=== PATIENT | female | born 1975 | race Caucasian/White ===

== ENCOUNTER 2016-11-04 14:55 | Emergency (ER) | payer OTHER ==
[2016-11-04 15:24] VITALS: BMI 38.9
--- NOTE | 2016-11-04 16:48 | PDOC ---
History of Present Illness <Manolo Cain - Last Filed: 11/04/16 18:43> - General History Source: Patient, Old Records Exam Limitations: No Limitations - History of Present Illness Initial Comments: 11/04/16 17:17 The patient is a 41 year old female, with a significant past medical history of hyperlipidemia, diabetes, proteinuria and DVT (2013; discontinued Lovenox in June 2016), who presents to the emergency department with worsening left lower extremity swelling and pain over the past couple of days. The patient states that she visited her PCPs office earlier today because she had been experiencing intermittent left lower extremity swelling and pain when ambulating over the past couple of days. The patient additionally reports that the left leg is larger compared to the right. Earlier today, the patient had an ultrasound done, which revealed a DVT in the left mid superficial femoral vein. The patients PCP was notified and sent the patient to the ED for further evaluation. The patient denies any extremity weakness/tingling/numbness. The patient denies injury or trauma. Allergies: None reported. Past Surgical History: None reported. Social History: Non smoker. Denies alcohol or drug use. PCP: ABHAY Matos <Vanesa Townsend - Last Filed: 11/04/16 19:42> - General Chief Complaint: Pain, Acute Stated Complaint: DVT IN LEFT LEG Time Seen by Provider: 11/04/16 16:48 Past History - Past Medical History DVT: Yes Diabetes: Yes Disorders: Yes (protineuria) Hypercholesterolemia: Yes - Psycho/Social/Smoking Cessation Hx Anxiety: No Suicidal Ideation: No Smoking History: Never smoked Have you smoked in the past 12 months: No Hx Alcohol Use: No Drug/Substance Use Hx: No Substance Use Type: None Hx Substance Use Treatment: No <Manolo Cain - Last Filed: 11/04/16 18:43> <Vanesa Townsend - Last Filed: 11/04/16 19:42> - Past Medical History Allergies/Adverse Reactions: Allergies Allergy/AdvReac Type Severity Reaction Status Date / Time No Known Allergies Allergy Verified 11/04/16 15:25 Home Medications: Ambulatory Orders Fluticasone Prop 0.05% Nasal [Flonase -] 1 spray NS BID #1 spray.pump 10/18/14 Insulin Aspart [Novolog] 0 units NR ASDIR 07/16/15 Insulin Lispro [Humalog] 0 unit SQ ASDIR 07/16/15 Ibuprofen [Motrin -] 800 mg PO TID #30 tablet 07/29/15 Rivaroxaban [Xarelto -] 20 mg PO DAILY #30 tablet 11/04/16 Review of Systems - Review of Systems Able to Perform ROS?: Yes Comments:: 11/04/16 17:07 CONSTITUTIONAL: No fever, no chills, no fatigue EYES: No visual changes ENT: No ear pain, no sore throat CARDIOVASCULAR: No chest pain, no palpitations RESPIRATORY: No cough, no SOB GI: No abdominal pain, no nausea, no vomiting, no constipation, no diarrhea GENITOURINARY: No dysuria, no frequency, no hematuria MUSCULOSKELETAL: +Left lower extremity swelling and pain. No back pain, no joint pain, no myalgias SKIN: No rash NEURO: No headache <Vanesa Townsend - Last Filed: 11/04/16 19:42> *Physical Exam - Vital Signs Last Vital Signs Temp Pulse Resp BP Pulse Ox 98.0 F 78 18 126/70 98 11/04/16 15:22 11/04/16 15:22 11/04/16 15:22 11/04/16 15:22 11/04/16 15:22 <Manolo Cain - Last Filed: 11/04/16 18:43> - Vital Signs Last Vital Signs Temp Pulse Resp BP Pulse Ox 98.0 F 78 18 126/70 98 11/04/16 15:22 11/04/16 15:22 11/04/16 15:22 11/04/16 15:22 11/04/16 15:22 - Physical Exam Comments: 11/04/16 17:43 CONSTITUTIONAL: Well-appearing; well-nourished; in no apparent distress. HEAD: Normocephalic; atraumatic. EYES: PERRL; EOM intact. ENMT: External appears normal; normal oropharynx. NECK: Supple; non-tender; no cervical lymphadenopathy. CARD: Normal S1, S2; no murmurs, rubs, or gallops. RESP: Normal chest excursion with respiration; breath sounds clear and equal bilaterally; no wheezes, rhonchi, or rales. ABD: Soft, non-distended; non-tender; no palpable organomegaly, no palpable hernias. EXT: LLE is approximately 20% larger than the RLE, no edema, no tenderness. Normal ROM in all four extremities; non-tender to palpation; distal pulses intact. SKIN: Warm, dry, no rash. NEURO: No focal neurological deficiencies. <Vanesa Townsend - Last Filed: 11/04/16 19:42> Medical Decision Making - Medical Decision Making 11/04/16 18:45 Patient is a 41-year-old female with history of DVT who discontinued Lovenox in June 2016 on the instructions of her BOARD OPERATOR 2 months post who presents with atraumatic left lower extremity swelling. Patient underwent an outpatient Doppler ultrasound of the left lower extremity which revealed a DVT within the left superficial vein. Patient denies chest pain or shortness of breath in the ER. Vital signs are normal and stable. I discussed the case with patient's PMD. At this time, patient can be discharged with is a relative by mouth with outpatient follow-up for hypercoagulability workup. Patient had received a dose of Lovenox in the ED prior to discharge. <Manolo Cain - Last Filed: 11/04/16 18:43> - Medical Decision Making 11/04/16 17:17 Call placed to BASKET ASSEMBLER Mariluz Regimen at at 16:55, awaiting callback. BASKET ASSEMBLER Mariluz Regimen returned call at 17:10, case discussed. <Vanesa Townsend - Last Filed: 11/04/16 19:42> *DC/Admit/Observation/Transfer - Attestations Physician Attestion: 11/04/16 18:45 The documentation was prepared by the scribe under my direct supervision. I have reviewed the documentation which correctly represents the findings, medical decision-making and critical action taken by me. <Manolo Cain - Last Filed: 11/04/16 18:43> - Attestations Scribe Attestion: 11/04/16 16:56 Documentation prepared by Vanesa Townsend, acting as medical receptionist medical assistant for Manolo Cain MD. <Vanesa Townsend - Last Filed: 11/04/16 19:42> Diagnosis at time of Disposition: Deep venous thrombosis Qualifiers: DVT location: lower extremity Affected thrombotic vein of extremity: unspecified vein of extremity Laterality: left Chronicity: acute Qualified Code( s): I82.402 - Acute embolism and thrombosis of unspecified deep veins of left lower extremity - Discharge Dispostion Disposition: HOME Condition at time of disposition: Stable - Prescriptions Prescriptions: Rivaroxaban [Xarelto -] 20 mg PO DAILY #30 tablet - Referrals Referrals: Leah Reynolds MD [Primary Care Provider] - - Patient Instructions Printed Discharge Instructions: DI for Deep Vein Thrombosis
[2016-11-04] MEDS ORDERED: ENOXAPARIN NA (PORCINE) 100 MG/1 ML DISP.SYRIN SQ ONE ×2 (17:07→18:00)
[2016-11-04 18:52] VITALS: BP 127/84; PULSE 80; TEMP 98.6
== END 2016-11-04 18:51 | disposition home or self-care (01) ==
LOC: JER 14:55
PROC: 3E013GC Introduction of Other Therapeutic Substance into Subcutaneous Tissue, Percutaneous Approach (ICD-10-PCS; principal; 2016-11-04)
DX: I82.402 Acute embolism and thrombosis of unspecified deep veins of left lower extremity (principal); E11.9 Type 2 diabetes mellitus without complications; Z79.4 Long term (current) use of insulin; R80.8 Other proteinuria; E78.00 Pure hypercholesterolemia, unspecified
CPT/HCPCS: 84703; 93971-TC; 96372; 99284-25

== ENCOUNTER 2018-08-05 19:27 | Emergency (ER) | payer OTHER ==
[2018-08-05 20:04] VITALS: BMI 39.5
--- NOTE | 2018-08-05 20:06 | PDOC ---
Rapid Medical Evaluation Time Seen by Provider: 08/05/18 20:02 Medical Evaluation: Allergies Allergy/AdvReac Type Severity Reaction Status Date / Time No Known Allergies Allergy Verified 11/04/16 15:25 08/05/18 20:04 pt c/o: left leg pain worsening over x 3 months, hx of DVT in 2011 Pt on brief exam: active, HR 94, + discomfort to left upper leg w/ lt foot dorsiflexion Pt ordered for: duplex pt to proceed to the ED Discharge Disposition - Diagnosis Leg pain - Referrals - Patient Instructions - Post Discharge Activity
--- NOTE | 2018-08-05 20:19 | PDOC ---
History of Present Illness <Evan Bahena - Last Filed: 08/05/18 21:50> - History of Present Illness Initial Comments: 42yo F with history of DM and DVT presenting with left leg pain. Patient states this pain has gone on for a number of weeks, but has worsened in the past two days, now rated 10.5/10 and described as sharp. Denies any injury or trauma to the area. She states this feels like when she had her previous DVT, but the pain is isolated to her thigh rather than her entire leg. Has not taken anything at home for pain. Moving her left leg brings exacerbates her pain. Her left leg is larger than her right leg at baseline since her DVT. She is unsure if the size difference has gotten worse. Patient is currently only on ASA 325 per her vascular specialist, Dr. Hernandez. Denies chest pain or shortness of breath. Endorses cold symptoms of sore throat and nasal congestion. Recently travelled to [place] by plan in April 2018. No hemoptysis, no recent surgery, no hormone use. No fevers or chills. <Marina Garcia - Last Filed: 08/06/18 02:10> - General Chief Complaint: Pain, Acute Stated Complaint: LT THIGH PAIN Time Seen by Provider: 08/05/18 20:02 Past History <Evan Bahena - Last Filed: 08/05/18 21:50> - Past Medical History DVT: Yes Diabetes: Yes Disorders: Yes (protineuria) Hypercholesterolemia: Yes - Suicide/Smoking/Psychosocial Hx Smoking History: Never smoked Have you smoked in the past 12 months: No Hx Alcohol Use: No Drug/Substance Use Hx: No Substance Use Type: None Hx Substance Use Treatment: No <Marina Garcia - Last Filed: 08/06/18 02:10> - Past Medical History Allergies/Adverse Reactions: Allergies Allergy/AdvReac Type Severity Reaction Status Date / Time No Known Allergies Allergy Verified 11/04/16 15:25 Home Medications: Ambulatory Orders Aspirin [ASA -] 325 mg PO DAILY 08/05/18 Cholecalciferol (Vitamin D3) [Vitamin D3 -] 400 unit PO DAILY 08/05/18 Metformin HCl [Glucophage] 1,000 mg PO BID 08/05/18 Sitagliptin Phosphate [Januvia] 100 mg PO DAILY 08/05/18 Enoxaparin [Lovenox -] 100 mg SQ BID #40 disp.syrin 08/06/18 Review of Systems - Review of Systems Comments:: Constitutional: no fever, no chills HEENT: +throat pain, no dysphagia Cardiovascular: no chest pain, no palpitations Respiratory: no cough, no shortness of breath Gastrointestinal: no abdominal pain, no nausea, no vomiting Genitourinary: no dysuria, no frequency Musculoskeletal: +L. leg pain, no R. leg pain Skin: no rash, no itching Neurologic: no headache, no dizziness <Marina Garcia - Last Filed: 08/06/18 02:10> *Physical Exam - Vital Signs Last Vital Signs Temp Pulse Resp BP Pulse Ox 98.4 F 95 H 20 137/86 99 08/05/18 19:58 08/05/18 19:58 08/05/18 19:58 08/05/18 19:58 08/05/18 19:58 <Evan Bahena - Last Filed: 08/05/18 21:50> - Vital Signs Last Vital Signs Temp Pulse Resp BP Pulse Ox 98.4 F 95 H 20 137/86 99 08/05/18 19:58 08/05/18 19:58 08/05/18 19:58 08/05/18 19:58 08/05/18 19:58 - Physical Exam Comments: General: Awake, alert, and fully oriented, in no acute distress Head: No signs of trauma Eyes: EOMI, sclera anicteric ENT: Moist mucus membranes Neck: Normal ROM, supple Lungs: Lungs clear, Normal breath sounds Cardio: Regular rhythm, S1 and S2 present Abdomen: Soft, nontender. No guarding, no rebound, no masses. Extremities: Tender to palpation to left posterior thigh. Normal range of motion , Distal pulses present. Left calf is larger than right calf. SKIN: Warm, Dry, normal turgor Neurologic: Cranial nerves II through XII grossly intact. Normal speech <Marina Garcia - Last Filed: 08/06/18 02:10> Moderate Sedation - Procedure Monitoring Vital Signs: Procedure Monitoring Vital Signs Temperature 98.4 F 08/05/18 19:58 Pulse Rate 95 H 08/05/18 19:58 Respiratory Rate 20 08/05/18 19:58 Blood Pressure 137/86 08/05/18 19:58 O2 Sat by Pulse Oximetry (%) 99 08/05/18 19:58 <Evan Bahenae - Last Filed: 08/05/18 21:50> - Procedure Monitoring Vital Signs: Procedure Monitoring Vital Signs Temperature 98.4 F 08/05/18 19:58 Pulse Rate 95 H 08/05/18 19:58 Respiratory Rate 20 08/05/18 19:58 Blood Pressure 137/86 08/05/18 19:58 O2 Sat by Pulse Oximetry (%) 99 08/05/18 19:58 <RadhaMarina - Last Filed: 08/06/18 02:10> ED Treatment Course - LABORATORY CBC & Chemistry Diagram: 08/05/18 22:03 08/05/18 22:03 <Marina Garcia - Last Filed: 08/06/18 02:10> Medical Decision Making - Medical Decision Making 08/05/18 21:50 Dr. Leah Reynolds was called regarding the patient at 9:50pm. [phone] <Evan Bahena - Last Filed: 08/05/18 21:50> - Medical Decision Making Patient not present in room 7 08/05/18 20:27 [place] back [place] 08/05/18 20:43 42yo F with history of DM and DVT presenting with left leg pain. -DDX includes but not limited to recurrent DVT, sciatica, MSK -US: "partially occlusive thrombus is seen within the left common femoral, femoral and popliteal veins. The posterior tibial vein appears patent." -US in October 2016 showed DVT in left mid superficial femoral vein -Given the different location, this is a recurrence of DVT Patient's first DVT in 2011 likely due to immobility as patient was wheelchair bound with a right meniscal injury. She was anticoagulated. Patient was switched to Lovenox when she was trying to get and continued lovenox six weeks into the post- period until Jun 2016. Patient found to have another DVT in October 2016 and sent home from this ED with Xarelto. Patient only on Aspirin 325 today. Discussed case with Dr. Moreau who recommends Eliquis Discussed case with Dr. Ryan who agrees with Madelaine anticoagulation and PMD follow-up. She advises the patient to stop taking aspirin while on other anticoagulation. Labs sent 08/05/18 22:13 Slightly elevated leukocytosis of 10.6 likely due to patient's URI. No anemia. Electrolytes unremarkable. Patient found to be . Decision made to anticoagulate patient with Lovenox due to current guidelines. 1mg/as=716cg per dose No pole or yolk sac viewed on bedside ultrasound which is likely because the is early on with b-hcg=48.2. She will follow-up with gospel singer regarding this. Lovenox administered. Nurse Magaña verified patient's ability to self-administer lovenox at home. Patient will follow-up with her primary care physician in 1-2 days. 08/06/18 02:01 <Marina Garcia - Last Filed: 08/06/18 02:10> *DC/Admit/Observation/Transfer <RinadreadEvan - Last Filed: 08/05/18 21:50> <Marina Garcia - Last Filed: 08/06/18 02:10> Diagnosis at time of Disposition: Leg pain Qualifiers: Laterality: left Qualified Code(s): M79.605 - Pain in left leg Deep venous thrombosis Qualifiers: DVT location: lower extremity - Discharge Dispostion Disposition: HOME Condition at time of disposition: Stable - Prescriptions Prescriptions: Enoxaparin [Lovenox -] 100 mg SQ BID #40 disp.syrin - Referrals Referrals: Leah Reynolds MD [Primary Care Provider] - Shelby Whitmore MD [Staff Physician] - - Patient Instructions Printed Discharge Instructions: DI for Deep Vein Thrombosis Additional Instructions: You came into the ED for left leg pain. We found that you have a blood clot and started you back on Lovenox shots. We also found out that you are . Lovenox prescription has been sent to your pharmacy. Administer 1 shot of 100mg twice a day. Stop taking the aspirin. Take a vitamin. You can take [id number] tylenol for your leg pain. Follow the instructions on the medication bottle. Follow-up with your primary care provider, Dr. Leah Reynolds in one to two days. Your care is not complete until you do so. Call and make an appointment. Follow up with the woodworking belt sander, Dr. Ryan, to determine if you need further testing for these blood clots. Follow-up with your obgyn doctor for this . Your hormone level today was 48.2 (beta-hcg). Return to the Emergency Department if you experience: -heavy bleeding (more than two pads per hour for two hours) -severe pain -lightheadedness -shortness of breath -high fever -any other concerning symptoms
[2018-08-05] MEDS ORDERED: ACETAMINOPHEN 1000 MG/100 ML VIAL (NON FORMULARY) IVPB ONE (21:48)
[2018-08-05] MEDS ORDERED: ACETAMINOPHEN INJECTION 100 ML IVPB ONE (22:06)
[2018-08-05 22:10] LABS: BASO % 1.2 % (0-2.0); EOS % 1.1 % (0-4.5); HEMOGLOBIN 12.8 GM/dL (10.7-15.3); LYMPH % 29.9 % (8-40); MCH 31.5 pg (25.7-33.7); MCHC 34.6 g/dl (32.0-36.0); MEAN CELL VOLUME 91.2 fl (80-96); MEAN PLT VOLUME 7.8 fl (7.5-11.1); MONO % 6.2 % (3.8-10.2); NEUT % 61.6 % (42.8-82.8); PLATELET COUNT 348 K/MM3 (134-434); RBC 4.05 M/mm3 (3.60-5.2); RDW 13.6 % (11.6-15.6); WHITE BLOOD COUNT 10.6 K/mm3 (4.0-10.0)
--- NOTE | 2018-08-05 22:11 | PDOC ---
Attending Attestation - Resident Resident Name: Marina Garcia - ED Attending Attestation I have performed the following: I have examined & evaluated the patient, The case was reviewed & discussed with the resident, I agree w/resident's findings & plan - HPI HPI: 08/05/18 22:06 42y/o F h/o LLE DVT, ? prompted on initial diagnosis in setting of L knee injury , treated with coumadin at the time then lovenox until 2015 while , complicated by recurrence in 2017, started on xarelto then with attempted thrombectomy (unsuccessful per patient) with Dr. Hernandez and placed on asa, now p/w worsening LLE pain over past 2-3 days. baseline LLE larger than R, no new swelling. had complete heme workup with Dr. Ryan at that time, reportedly normal. no cardiopulmonary complaints whatsoever. traveled to [place] in april, otherwise no recent triggers. - Physicial Exam PE: 08/05/18 22:11 afebrile, well appearing heart regular, lungs clear abd soft LLE slightly larger than right, no significant tenderness, well perfused with 2 + distal pulses, no evidence of vascular congestion, neuro intact - Medical Decision Making 08/05/18 22:13 42-year-old female with history of left lower extremity DVT maintained on aspirin presents now with recurrence of left lower extremity pain, ultrasound ordered shows partially occluding thrombus. No signs or symptoms suggestive of PE. Discussed with Dr. Hernandez and Dr. Ryan - no indication for emergent procedural intervention will check basic labs including stable and candidate for outpatient treatment with eliquis 08/05/18 22:54 Labs normal but serum positive, possible trigger for recurrence of DVT. Rule out acute abnormality, will need Lovenox instead of eliquis upon discharge.
[2018-08-05 22:21] LABS: INR 0.98 (0.83-1.09); PROTHROMBIN TIME (PATIENT) 11.6 SEC (9.7-13.0)
[2018-08-05 22:24] LABS: ACTIVATED PTT 34.5 SECONDS (25.2-36.5)
[2018-08-05 22:33] LABS: ALBUMIN 3.8 g/dl (3.4-5.0); ALK PHOS 48 U/L (45-117); ANION GAP 8 MMOL/L (8-16); BILIRUBIN,TOTAL 0.2 mg/dL (0.2-1); BLOOD UREA NITROGEN 16 mg/dL (7-18); CALCIUM 8.7 mg/dL (8.5-10.1); CHLORIDE 106 mmol/L (98-107); CO2 24 mmol/L (21-32); CREATININE 0.6 mg/dL (0.55-1.3); GLUCOSE,RANDOM 151 mg/dL (74-106); POTASSIUM 4.4 mmol/L (3.5-5.1); SGOT/AST 8 U/L (15-37); SGPT/ALT 18 U/L (13-61); SODIUM 138 mmol/L (136-145); TOT PROT 7.3 g/dl (6.4-8.2)
[2018-08-05] MEDS ORDERED: ENOXAPARIN NA (PORCINE) 100 MG/1 ML DISP.SYRIN SQ ONE ×2 (23:32→23:58)
[2018-08-06 00:51] VITALS: BP 127/68; PULSE 89; TEMP 98.6
== END 2018-08-06 00:30 | disposition home or self-care (01) ==
LOC: JER 19:27
PROC: 3E013GC Introduction of Other Therapeutic Substance into Subcutaneous Tissue, Percutaneous Approach (ICD-10-PCS; principal; 2018-08-05)
PROC: 3E033NZ Introduction of Analgesics, Hypnotics, Sedatives into Peripheral Vein, Percutaneous Approach (ICD-10-PCS; 2018-08-05)
DX: I82.412 Acute embolism and thrombosis of left femoral vein (principal); I82.432 Acute embolism and thrombosis of left popliteal vein; E11.9 Type 2 diabetes mellitus without complications; Z79.84 Long term (current) use of oral hypoglycemic drugs; Z79.82 Long term (current) use of aspirin
CPT/HCPCS: 36415; 80053; 84702; 84703; 85025; 85610; 85730; 93971-TC; 99283-25; J0131

== ENCOUNTER 2019-07-23 17:28 | Inpatient (IN) | payer OTHER ==
--- NOTE | 2019-07-23 17:59 | PDOC ---
History of Present Illness - History of Present Illness Initial Comments: The pt is a 43F w/ a history of DM and DVT (2011) who recently was taken off of Lvx PPx (s/p recent 3m ago) who presents for evaluation of 1 day of LLE swelling, redness, and pain. She reports recent travel from [place] on 07/21/19. She states she has SCDs at home that she was not using on her trip. Since she was taken off of Lvx and is currently only taking ASA 81mg daily. Denies fevers/chills, cheat pain, trouble breathing, vision changes, ARELLANO, N/V, weakness, or changes in sensation 07/23/19 18:00 <Ministerio Watkins - Last Filed: 07/23/19 18:46> <Destiney Glover - Last Filed: 07/23/19 18:53> - General Chief Complaint: Pain Stated Complaint: LEG PAIN Past History - Past Medical History COPD: No DVT: Yes Diabetes: Yes Disorders: Yes (protineuria) Hypercholesterolemia: Yes - Psycho Social/Smoking Cessation Hx Smoking History: Never smoked Have you smoked in the past 12 months: No Hx Alcohol Use: No Drug/Substance Use Hx: No Substance Use Type: None Hx Substance Use Treatment: No <Ministerio Watkins - Last Filed: 07/23/19 18:46> <Destiney Glover - Last Filed: 07/23/19 18:53> - Past Medical History Allergies/Adverse Reactions: Allergies Allergy/AdvReac Type Severity Reaction Status Date / Time No Known Allergies Allergy Verified 07/23/19 17:34 Home Medications: Ambulatory Orders Metformin HCl [Glucophage] 1,000 mg PO BID 08/05/18 Aspirin [ASA -] 81 mg PO DAILY 07/23/19 Review of Systems - Review of Systems Able to Perform ROS?: Yes Comments:: GENERAL/CONSTITUTIONAL: No fever or chills. No weakness HEAD, EYES, EARS, NOSE AND THROAT: No change in vision. No change in hearing. No sore throat CARDIOVASCULAR: No chest pain or shortness of breath RESPIRATORY: Denies cough, hemoptysis GASTROINTESTINAL: No nausea, vomiting, diarrhea or constipation GENITOURINARY: No dysuria, frequency, or change in urination MUSCULOSKELETAL: LLE swelling, redness, pain SKIN: No rash NEUROLOGIC: No headache, vertigo, loss of consciousness, or change in strength/ sensation ENDOCRINE: No increased thirst. No abnormal weight change HEMATOLOGIC/LYMPHATIC: No anemia, easy bleeding, or history of blood clots ALLERGIC/IMMUNOLOGIC: No hives or skin allergy 07/23/19 17:58 Is the patient limited Omani proficient: No <Ministerio Watkins - Last Filed: 07/23/19 18:46> *Physical Exam - Vital Signs Last Vital Signs Temp Pulse Resp BP Pulse Ox 98 F 83 18 118/76 100 07/23/19 17:30 07/23/19 17:30 07/23/19 17:30 07/23/19 17:30 07/23/19 17:30 - Physical Exam GENERAL: Awake, alert, and oriented to person/place/time, in no acute distress HEAD: No signs of trauma, normocephalic, atraumatic EYES: PERRLA, EOMI, sclera anicteric, conjunctiva clear ENT: Hearing grossly normal, nares patent, oropharynx clear without exudates. Moist mucosa LUNGS: No distress, speaks in full sentences, clear to auscultation bilaterally HEART: Regular rate and rhythm, normal S1 and S2, no murmurs appreciated, b/l DP /PT 2+ ABDOMEN: Soft, protuberant, nontender, normoactive bowel sounds. No guarding, no rebound EXTREMITIES: LLE distal swelling, TTP, and medial petechiae, moves all extremities spontaneously NEUROLOGICAL: Cranial nerves II through XII grossly intact. Normal speech, normal gait, no focal sensorimotor deficits SKIN: as noted above, otherwise warm, dry 07/23/19 17:58 <Ministerio Watkins - Last Filed: 07/23/19 18:46> - Vital Signs Last Vital Signs Temp Pulse Resp BP Pulse Ox 98 F 83 18 118/76 100 07/23/19 17:30 07/23/19 17:30 07/23/19 17:30 07/23/19 17:30 07/23/19 18:20 <Destiney Glover - Last Filed: 07/23/19 18:53> ED Treatment Course - LABORATORY CBC & Chemistry Diagram: 07/23/19 18:30 07/23/19 18:30 <Ministerio Watkins - Last Filed: 07/23/19 18:46> - LABORATORY CBC & Chemistry Diagram: 07/23/19 18:30 07/23/19 18:30 <Destiney Glover - Last Filed: 07/23/19 18:53> Medical Decision Making - Medical Decision Making The pt is a 43F w/ a history of DM and DVT (2011) who recently was taken off of Lvx PPx (s/p recent 3m ago) who presents for evaluation of 1 day of LLE swelling, redness, and pain. ED Course CMP, CBC, Coags Lower extremity duplex 07/23/19 18:23 Pt's labs and imaging pending Pt not in respiratory distress Pt signed out to Dr. Navarro 07/23/19 18:46 <Ministerio Watkins - Last Filed: 07/23/19 18:46> Discharge - Discharge Information Problems reviewed: Yes <Ministerio Watkins - Last Filed: 07/23/19 18:46> <Destiney Glover - Last Filed: 07/23/19 18:53> - Discharge Information Clinical Impression/Diagnosis: Left leg swelling, Rash - Follow up/Referral Referrals: Leah Reynolds MD [Primary Care Provider] - Shelby Whitmore MD [Staff Physician] - Kiran Hernandez MD [Staff Physician] - - Patient Discharge Instructions - Post Discharge Activity
--- NOTE | 2019-07-23 18:14 | PDOC ---
Attending Attestation - Resident Resident Name: Ministerio Watkins - ED Attending Attestation I have performed the following: I have examined & evaluated the patient, The case was reviewed & discussed with the resident, I agree w/resident's findings & plan - HPI HPI: 07/23/19 18:18 43F w/ a history of DM and DVT (2011) who recently was taken off of Lvx PPx (s/ p recent 3m ago) who presents for evaluation of 1 day of LLE swelling , redness, and pain. She reports recent travel from [place] on 07/21/19, 3 hour flight; was there x 1 week. She states she has SCDs at home that she was not using on her trip. Since she was taken off of Lvx and is currently only taking ASA 81mg daily. denies immobilization or recent surgery no chest pain, sob, dizziness, syncope. no trauma. no insect bites. 07/23/19 18:51 07/24/19 09:30 - Physicial Exam PE: 07/23/19 18:14 Agree with the resident's HPI and PE as documented in the electronic medical record. NAD, well appearing, EOMI, PERRL, nl conjunctiva, anicteric; neck supple. lungs clear, RRR, abdomen soft nontender. no rebound, guarding. Back nontender. DIZA x4, no focal neuro deficits. No peripheral edema. normal color for ethnicity , WWP. +LLE calf swelling, nonpitting. nontender. no calf tenderness. LLE lower inner and anterior navas with petechiae. 07/23/19 18:51 - Medical Decision Making 07/23/19 18:14 Vital Signs Temp Pulse Resp BP Pulse Ox 98 F 83 18 118/76 100 07/23/19 17:30 07/23/19 17:30 07/23/19 17:30 07/23/19 17:30 07/23/19 17:30 vitals wnl, reassuring. no cp or sob to suggest PE at this time. isolated LE swelling in LLE. labs/lytes, cr function, duplex, check for DVT given recent travel to [place], LLE swelling petechial rash to LLE seen, nontender. pt is on ASA, will check platelets and coags. does not appear like meningiococcemia or infectious. does not appear like vasculitis. s/o pending reeval, labs, duplex to eval for DVT and ultimate dispo. 07/24/19 09:31
[2019-07-23 18:43] LABS: BASO % 1.2 % (0-2.0); EOS % 1.7 % (0-4.5); HEMOGLOBIN 12.4 GM/dL (10.7-15.3); LYMPH % 32.3 % (8-40); MCH 31.6 pg (25.7-33.7); MCHC 33.3 g/dl (32.0-36.0); MEAN CELL VOLUME 94.8 fl (80-96); MEAN PLT VOLUME 7.9 fl (7.5-11.1); MONO % 6.7 % (3.8-10.2); NEUT % 58.1 % (42.8-82.8); PLATELET COUNT 306 K/MM3 (134-434); RBC 3.91 M/mm3 (3.60-5.2); RDW 13.3 % (11.6-15.6); WHITE BLOOD COUNT 7.6 K/mm3 (4.0-10.0)
[2019-07-23 18:55] LABS: INR 0.89 (0.83-1.09); PROTHROMBIN TIME (PATIENT) 10.5 SEC (9.7-13.0)
[2019-07-23 18:58] LABS: ACTIVATED PTT 32.9 SECONDS (25.2-36.5)
--- NOTE | 2019-07-23 19:03 | PDOC ---
*Physical Exam - Vital Signs Last Vital Signs Temp Pulse Resp BP Pulse Ox 98 F 83 18 118/76 100 07/23/19 17:30 07/23/19 17:30 07/23/19 17:30 07/23/19 17:30 07/23/19 18:20 - Physical Exam MDM: Received sign out from resident Dr. Watkins. In short, pt is a 43 y/o female presenting with left leg pain and swelling after recent flight from [place]. Pt has a h/o DVT in 2011. AC was stopped but then pt was placed on Lovenox prophylaxis during recent but discontinued prior to this trip. Will f/u pending lab work and U/S. Reviewed laboratory data. No clinically significant derangements. U/S revealed DVT in the lower extremity. Ordered Lovenox for AC. Will admit the pt for recurrent DVT. 23 Jul 2019 20:51 PM Telephone discussion with resident Dr. Dr. Dickson. Verbally appraised of the pts HPI, ED course, and current plan of management. Will admit pt to med/surg for attending Dr. Beníetz. ED Treatment Course - LABORATORY CBC & Chemistry Diagram: 07/23/19 18:30 07/23/19 18:30 - ADDITIONAL ORDERS Additional order review: Laboratory Results 07/23/19 18:30 PT with INR 10.50 INR 0.89 PTT (Actin FS) 32.9 07/23/19 18:30 RBC 3.91 MCV 94.8 MCHC 33.3 RDW 13.3 MPV 7.9 Neutrophils % 58.1 Lymphocytes % 32.3 D Monocytes % 6.7 Eosinophils % 1.7 Basophils % 1.2 - RADIOLOGY Radiograph Interpretation: Left Lower Extremity Duplex: THIS IS A PRELIMINARY REPORT FROM [facility] PREVENTION DETECTIVE DATE OF SERVICE: 2019-07-23 18:39:39 IMAGES: 47 EXAM: US VENOUS DUPLEX LOWER BILATERAL HISTORY:Please evaluate for DVT, leg swelling and pain. TECHNIQUE: Real time imaging of the bilateral lower extremities was performed including 2D B-mode, spectral and color Doppler technique. Augmentation maneuvers were performed. COMPARISON: None available. FINDINGS: Near occlusive thrombus in the left common femoral vein and proximal segment of the left superficial femoral vein. The remaining veins are patent and compressible. THIS DOCUMENT HAS BEEN ELECTRONICALLY SIGNED Cristi Sanderson MD 07/23/2019 19:35 EST Discharge - Discharge Information Problems reviewed: Yes Clinical Impression/Diagnosis: Left leg swelling, Rash DVT (deep venous thrombosis) Qualifiers: DVT location: lower extremity Affected thrombotic vein of extremity: other lower extremity vein Chronicity: acute Laterality: left Qualified Code(s): I82.492 - Acute embolism and thrombosis of other specified deep vein of left lower extremity Condition: Stable - Admission Yes - Follow up/Referral Referrals: Leah Reynolds MD [Primary Care Provider] - Shelby Whitmore MD [Staff Physician] - Kiran Hernandez MD [Staff Physician] - - Patient Discharge Instructions - Post Discharge Activity
[2019-07-23 19:10] LABS: ALBUMIN 3.6 g/dl (3.4-5.0); BILIRUBIN,TOTAL 0.1 mg/dL (0.2-1); BLOOD UREA NITROGEN 10.8 mg/dL (7-18); CALCIUM 8.7 mg/dL (8.5-10.1); CREATININE 0.5 mg/dL (0.55-1.3); POTASSIUM 4.6 mmol/L (3.5-5.1); TOT PROT 6.7 g/dl (6.4-8.2)
--- NOTE | 2019-07-23 19:46 | PDOC ---
*Physical Exam - Vital Signs Last Vital Signs Temp Pulse Resp BP Pulse Ox 98 F 83 18 118/76 100 07/23/19 17:30 07/23/19 17:30 07/23/19 17:30 07/23/19 17:30 07/23/19 18:20 ED Treatment Course - LABORATORY CBC & Chemistry Diagram: 07/23/19 18:30 07/23/19 18:30 - ADDITIONAL ORDERS Additional order review: Laboratory Results 07/23/19 07/23/19 18:30 18:30 PT with INR 10.50 INR 0.89 PTT (Actin FS) 32.9 Sodium 137 Potassium 4.6 Chloride 104 Carbon Dioxide 27 Anion Gap 5 L BUN 10.8 Creatinine 0.5 L Est GFR (CKD-EPI)AfAm 137.39 Est GFR (CKD-EPI)NonAf 118.54 Random Glucose 126 H Calcium 8.7 Total Bilirubin 0.1 L AST 15 ALT 28 Alkaline Phosphatase 46 Total Protein 6.7 Albumin 3.6 07/23/19 18:30 RBC 3.91 MCV 94.8 MCHC 33.3 RDW 13.3 MPV 7.9 Neutrophils % 58.1 Lymphocytes % 32.3 D Monocytes % 6.7 Eosinophils % 1.7 Basophils % 1.2 Medical Decision Making - Medical Decision Making 07/23/19 19:46 Patient Name: EMILY GROVES THIS IS A PRELIMINARY REPORT FROM [facility]ID[facility] TECHNICIAN DATE OF SERVICE: 2019-07-23 18:39:39 IMAGES: 47 EXAM: US VENOUS DUPLEX LOWER BILATERAL HISTORY:Please evaluate for DVT, leg swelling and pain. TECHNIQUE: Real time imaging of the bilateral lower extremities was performed including 2D B-mode, spectral and color Doppler technique. Augmentation maneuvers were performed. COMPARISON: None available. FINDINGS: Near occlusive thrombus in the left common femoral vein and proximal segment of the left superficial femoral vein. The remaining veins are patent and compressible. 07/23/19 21:14 Pt will be given lovenox and she will be admitted Discharge - Discharge Information Problems reviewed: Yes Clinical Impression/Diagnosis: Left leg swelling, Rash DVT (deep venous thrombosis) Qualifiers: DVT location: lower extremity Affected thrombotic vein of extremity: other lower extremity vein Chronicity: acute Laterality: left Qualified Code(s): I82.492 - Acute embolism and thrombosis of other specified deep vein of left lower extremity Condition: Stable - Follow up/Referral - Patient Discharge Instructions - Post Discharge Activity
[2019-07-23] MEDS ORDERED: ENOXAPARIN NA (PORCINE) 100 MG/1 ML DISP.SYRIN SQ SCH (20:00)
[2019-07-23] MEDS ORDERED: ENOXAPARIN NA (PORCINE) 100 MG/1 ML DISP.SYRIN SQ ONE (20:20)
--- NOTE | 2019-07-23 22:38 | HP ---
CHIEF COMPLAINT: LLE swelling PCP: Leah Reynolds HISTORY OF PRESENT ILLNESS: 43F w/ pmh of NIDDM, DVT(dx 2011), femoral ?vein stent([place], 2013) presenting to [facility] w/ complaint of LLE swelling w/a burning pain, petitchial patch of Left lower leg x1d. Says that she woke up this morning and noticed that her LLE was swollen, wasn't concerned initially but then experienced burning pain which prompted her to come to the ED. Also complains of mild swelling of L hand, mild pain with finger extension. Recently, had a trip to [place] 07/07/19 to07/15/19, involving a 3-4hr flight. Says that she had a groin stent in [place] in 2013 which has "clogged". Had seen Dr Irizarry as outpatient who attempted "unclogging" it but was unsuccessful. Pt was offerred re-intervention but has declined. Has been seen by Dr Ryan as outpatient. Thinks that her labwork has been unremarkable. For AC, has been on coumadin + ASA for several years after her 2012 DVT, then was instructed to only take ASA unless in which case she took lovenox. Gave a few months ago. Denies SOB, cough, calf pain, loss of sensation to limb, photophobia, oral ulcers. Endorses a history of bleeding gums after brushing teeth, epistaxis occurring every 1-2months. ER course was notable for: (1) US BLE duplex: prelim read of near occlusive thrombus in Left common femoral vein and proximal segment of Left superficial femoral vein (2) EKG: NSR, "inferior infarct, age undetermined", QTc 436; not significantly different from old EKG Recent Travel: [place](07/07/19 - 07/21/19) PAST MEDICAL HISTORY: NIDDM, DVT(dx 2011), femoral ?vein stent([place], 2013) PAST SURGICAL HISTORY: L shoulder sx L knee sx L groin stent([facility], 2013) Social History: Smoking: denies Alcohol: denies Drugs: denies Allergies No Known Allergies Allergy (Verified 07/23/19 17:34) HOME MEDICATIONS: Home Medications Medication Instructions Recorded Metformin HCl [Glucophage] 1,000 mg PO BID 01/10/19 Aspirin [ASA -] 81 mg PO DAILY 07/23/19 REVIEW OF SYSTEMS CONSTITUTIONAL: Absent: fever, chills, diaphoresis, generalized weakness, malaise, loss of appetite, weight change HEENT: Absent: rhinorrhea, nasal congestion, throat pain, throat swelling, difficulty swallowing, mouth swelling, ear pain, eye pain, visual changes CARDIOVASCULAR: Absent: chest pain, syncope, palpitations, irregular heart rate, lightheadedness , peripheral edema RESPIRATORY: Absent: cough, shortness of breath, dyspnea with exertion, orthopnea, wheezing, stridor, hemoptysis GASTROINTESTINAL: Absent: abdominal pain, abdominal distension, nausea, vomiting, diarrhea, constipation, melena, hematochezia GENITOURINARY: Absent: dysuria, frequency, urgency, hesitancy, hematuria, flank pain, genital pain MUSCULOSKELETAL: LLE swelling and burning pain. L hand swelling Absent: myalgia, arthralgia, joint swelling, back pain, neck pain SKIN: Absent: rash, itching, pallor HEMATOLOGIC/IMMUNOLOGIC: epistaxis, gum bleeding with brushing teeth Absent: easy bruising, lymphadenopathy, frequent infections NEUROLOGIC: Absent: headache, focal weakness or paresthesias, dizziness, unsteady gait, seizure, mental status changes, bladder or bowel incontinence PHYSICAL EXAMINATION Vital Signs - 24 hr 07/23/19 07/23/19 07/23/19 17:30 18:20 20:41 Temperature 98 F 97.9 F Pulse Rate 83 Pulse Rate [ 78 Left Radial] Respiratory 18 Rate Blood Pressure 118/76 Blood Pressure 120/74 [Right Arm] O2 Sat by Pulse 100 100 98 Oximetry (%) GENERAL: Awake, alert, and fully oriented, in no acute distress. HEAD: NC/AT, no temporal wasthing EYES: extraocular movements intact, sclera anicteric, conjunctiva clear. No lid lag. EARS, NOSE, THROAT: Ears normal, nares patent, oropharynx clear without exudates. Moist mucous membranes. NECK: Normal range of motion, supple without lymphadenopathy, JVD, or masses. LUNGS: Breath sounds equal, clear to auscultation bilaterally. No wheezes, and no crackles. No accessory muscle use. Breathing RA HEART: Regular rate and rhythm, normal S1 and S2 without murmur, rub or gallop. ABDOMEN: Soft, nontender, not distended, normoactive bowel sounds, no guarding, no rebound, no masses. MUSCULOSKELETAL: Normal range of motion at all joints. No bony deformities or tenderness. No CVA tenderness. UPPER EXTREMITIES: 2+ pulses, warm, well-perfused. No cyanosis. No clubbing. Mildly swollen Left hand. LOWER EXTREMITIES: 2+ pulses, warm, well-perfused. No calf tenderness. Non- pitting swelling of LLE from thigh to ankle. Petechiael patch of distal lower leg, medial surface. No TTP of limbs x4 NEUROLOGICAL: Normal speech. Moving all for limbs spontaneously. Sensation is intact in all four limbs. SKIN: Warm, dry, normal turgor, normal capillary refill. Laboratory Results - last 24 hr 07/23/19 07/23/19 07/23/19 18:30 18:30 18:30 WBC 7.6 RBC 3.91 Hgb 12.4 Hct 37.0 MCV 94.8 MCH 31.6 MCHC 33.3 RDW 13.3 Plt Count 306 MPV 7.9 Absolute Neuts (auto) 4.4 Neutrophils % 58.1 Lymphocytes % 32.3 D Monocytes % 6.7 Eosinophils % 1.7 Basophils % 1.2 Nucleated RBC % 0 PT with INR 10.50 INR 0.89 PTT (Actin FS) 32.9 Sodium 137 Potassium 4.6 Chloride 104 Carbon Dioxide 27 Anion Gap 5 L BUN 10.8 Creatinine 0.5 L Est GFR (CKD-EPI)AfAm 137.39 Est GFR (CKD-EPI)NonAf 118.54 Random Glucose 126 H Calcium 8.7 Total Bilirubin 0.1 L AST 15 ALT 28 Alkaline Phosphatase 46 Total Protein 6.7 Albumin 3.6 ASSESSMENT/PLAN: 43F w/ pmh of NIDDM, DVT(dx 2011), femoral ?vein stent([place], 2013) presenting to [facility] w/ complaint of LLE swelling w/a burning pain, petitchial patch of Left lower leg x1d. US venous duplex showing prelim read of near occlusive thrombus of Left common femoral vein and proximal Left superfical femoral vein. Pt is minimally symptomatic and HD stable # recurrent DVT --hypercoaguable vs May-Thurner vs other > US BLE duplex(07/24/19): prelim read of near occlusive thrombus in Left common femoral vein and proximal segment of Left superficial femoral vein > US LLE duplex(11/04/16): DVT in Left mid superficial femoral vein > US LLE duplex(08/05/18): partially occlusive thrombus is seen w/in the Left common femoral, femoral and popliteal veins - consult Vascular Sx(Darryl, pt follows) - consult Hematology(Shelby, pt follows) - lovenox 100mg,q12H # LUE swelling - fu DVT BUE # chronic diabetes - insulin sliding scale FEN - diabetic diet DVT PPX - therapeutic lovenox Dispo - medsurg - unlikely to have home needs Family Medical History Family Hx Diabetes: Mother, Brother Family Hx Renal Disease: Mother (ESRD, renal transplant) Visit type - Emergency Visit Emergency Visit: Yes ED Registration Date: 07/23/19 Care time: The patient presented to the Emergency Department on the above date and was hospitalized for further evaluation of their emergent condition. - New Patient This patient is new to me today: Yes Date on this admission: 07/23/19 - Critical Care Critical Care patient: No ATTENDING PHYSICIAN STATEMENT I saw and evaluated the patient. I reviewed the resident's note and discussed the case with the resident. I agree with the resident's findings and plan as documented. SUBJECTIVE: OBJECTIVE: ASSESSMENT AND PLAN:
--- NOTE | 2019-07-23 22:57 | PN ---
Teaching Attending Note Name of Resident: Danny Dickson ATTENDING PHYSICIAN STATEMENT I saw and evaluated the patient. I reviewed the resident's note and discussed the case with the resident. I agree with the resident's findings and plan as documented. SUBJECTIVE: This is a 43 year old woman with a history of hyperlipidemia, type 2 DM, LLE DVT who comes to the ED complaining of swelling of her left leg with a burning sensation since yesterday. She was first found to have a LLE DVT in 2011. She was treated with Coumadin/Lovenox until 2015. She also reports having a left femoral vein stent placed in 2013 which has since occluded. In October 2016 she was found to have a DVT in the left mid superficial femoral vein and was again treated with Coumadin. After Coumadin, she was maintained on aspirin. In July 2018, she was found to have a partially occlusive thrombus in the left common femoral, femoral, and popliteal veins. At that time, Eliquis was recommended but she was also found to be , so she was treated instead with Lovenox. After the delivery, she was again maintained on aspirin. She traveled to [place] 07/07-07/15. She first noted swelling of her left leg yesterday. She also noted redness of the distal lower leg with a burning pain. OBJECTIVE: Vital Signs Period Temp Pulse Resp BP Sys/Hackett Pulse Ox Last 24 Hr 97.9 F-98 F 78-83 18 118-120/74-76 98-100 HEART: S1S2, RRR LUNGS: Clear ABDOMEN: Obese, soft, non-tender, non-distended, normal BS EXTREMITIES: (+) Edema of LLE from thigh to foot, no tenderness. (+) Swelling of left hand and fingers Laboratory Tests 07/23/19 07/23/19 07/23/19 18:30 18:30 18:30 WBC 7.6 RBC 3.91 Hgb 12.4 Hct 37.0 MCV 94.8 MCH 31.6 MCHC 33.3 RDW 13.3 Plt Count 306 MPV 7.9 Absolute Neuts (auto) 4.4 Neutrophils % 58.1 Lymphocytes % 32.3 D Monocytes % 6.7 Eosinophils % 1.7 Basophils % 1.2 Nucleated RBC % 0 PT with INR 10.50 INR 0.89 PTT (Actin FS) 32.9 Sodium 137 Potassium 4.6 Chloride 104 Carbon Dioxide 27 Anion Gap 5 L BUN 10.8 Creatinine 0.5 L Est GFR (CKD-EPI)AfAm 137.39 Est GFR (CKD-EPI)NonAf 118.54 Random Glucose 126 H Calcium 8.7 Total Bilirubin 0.1 L AST 15 ALT 28 Alkaline Phosphatase 46 Total Protein 6.7 Albumin 3.6 Home Medications Medication Instructions Recorded Metformin HCl [Glucophage] 1,000 mg PO BID 08/05/18 Aspirin [ASA -] 81 mg PO DAILY 07/23/19 ASSESSMENT AND PLAN: This is a 43 year old woman with a history of hyperlipidemia, type 2 DM, LLE DVTs who presented to the ED with pain and swelling of her left leg. 1. Recurrent LLE DVT - Venous duplex shows near occlusive thrombus in the left common femoral vein and proximal segment of the left superficial femoral vein - Will likely need lifetime anticoagulation with Eliquis or Lovenox - Lovenox given in ED - will continue - Hematology, vasculal surgery consults 2. Type 2 DM - Hold metformin - Fingersticks with Novolog sliding scale 3. Hyperlipidemia - On no medication 4. Obesity with BMI 37.9 - Counseled about diet, exercise, weight loss
[2019-07-24 04:42] VITALS: BMI 38.9
[2019-07-24] MEDS: INSULIN SLIDING SCALE (NOVOLOG) 1 VIAL SQ SCH ×3 (06:26→17:35)
[2019-07-24 07:42] LABS: HEMATOCRIT 35.3 % (32.4-45.2); HEMOGLOBIN 11.8 GM/dL (10.7-15.3); MCH 31.8 pg (25.7-33.7); MCHC 33.6 g/dl (32.0-36.0); MEAN CELL VOLUME 94.8 fl (80-96); PLATELET COUNT 272 K/MM3 (134-434); RBC 3.72 M/mm3 (3.60-5.2); RDW 13.4 % (11.6-15.6); WHITE BLOOD COUNT 6.6 K/mm3 (4.0-10.0)
[2019-07-24 08:01] LABS: BLOOD UREA NITROGEN 8.9 mg/dL (7-18); CALCIUM 8.7 mg/dL (8.5-10.1); CREATININE 0.5 mg/dL (0.55-1.3); MAGNESIUM 1.5 mg/dL (1.8-2.4); PHOSPHOROUS 4.3 mg/dL (2.5-4.9); POTASSIUM 3.8 mmol/L (3.5-5.1)
[2019-07-24] MEDS ORDERED: ENOXAPARIN NA (PORCINE) 100 MG/1 ML DISP.SYRIN SQ SCH (10:00)
--- NOTE | 2019-07-24 11:46 | PN ---
Progress Note (short form) - Note Progress Note: Subjective: no pain in LLE, no SOB, no CP . Objective: Vital Signs: Last Vital Signs Temp Pulse Resp BP Pulse Ox 98.6 F 76 18 123/76 99 07/24/19 10:28 07/24/19 10:28 07/24/19 10:28 07/24/19 10:28 07/23/19 21:15 Laboratory Results - last 24 hr 07/23/19 07/23/19 07/23/19 18:30 18:30 18:30 WBC 7.6 RBC 3.91 Hgb 12.4 Hct 37.0 MCV 94.8 MCH 31.6 MCHC 33.3 RDW 13.3 Plt Count 306 MPV 7.9 Absolute Neuts (auto) 4.4 Neutrophils % 58.1 Lymphocytes % 32.3 D Monocytes % 6.7 Eosinophils % 1.7 Basophils % 1.2 Nucleated RBC % 0 PT with INR 10.50 INR 0.89 PTT (Actin FS) 32.9 Sodium 137 Potassium 4.6 Chloride 104 Carbon Dioxide 27 Anion Gap 5 L BUN 10.8 Creatinine 0.5 L Est GFR (CKD-EPI)AfAm 137.39 Est GFR (CKD-EPI)NonAf 118.54 POC Glucometer Random Glucose 126 H Calcium 8.7 Phosphorus Magnesium Total Bilirubin 0.1 L AST 15 ALT 28 Alkaline Phosphatase 46 Total Protein 6.7 Albumin 3.6 Urine HCG, Qual 07/24/19 07/24/19 07/24/19 06:25 06:25 06:25 WBC 6.6 RBC 3.72 Hgb 11.8 Hct 35.3 MCV 94.8 MCH 31.8 MCHC 33.6 RDW 13.4 Plt Count 272 MPV 8.0 Absolute Neuts (auto) Neutrophils % Lymphocytes % Monocytes % Eosinophils % Basophils % Nucleated RBC % PT with INR INR PTT (Actin FS) Sodium 138 Potassium 3.8 Chloride 105 Carbon Dioxide 26 Anion Gap 6 L BUN 8.9 Creatinine 0.5 L Est GFR (CKD-EPI)AfAm 137.39 Est GFR (CKD-EPI)NonAf 118.54 POC Glucometer 139 Random Glucose 133 H Calcium 8.7 Phosphorus 4.3 Magnesium 1.5 L Total Bilirubin AST ALT Alkaline Phosphatase Total Protein Albumin Urine HCG, Qual 07/24/19 10:40 WBC RBC Hgb Hct MCV MCH MCHC RDW Plt Count MPV Absolute Neuts (auto) Neutrophils % Lymphocytes % Monocytes % Eosinophils % Basophils % Nucleated RBC % PT with INR INR PTT (Actin FS) Sodium Potassium Chloride Carbon Dioxide Anion Gap BUN Creatinine Est GFR (CKD-EPI)AfAm Est GFR (CKD-EPI)NonAf POC Glucometer Random Glucose Calcium Phosphorus Magnesium Total Bilirubin AST ALT Alkaline Phosphatase Total Protein Albumin Urine HCG, Qual Negative Physical Exam: NAD, awake, alert, cooperative Lungs: CTAB CV: RRR, no MRG ABd: obese, soft, NT, ND, nL BS EXt: L leg circumference > R. bruises on medial lower R leg. no tenderness. Non pitting edema . DP 2+ b/l. can't feel PT on both sides Neuro of LE: strength 5/5 im hip flexion, knee flexion/extension, and ankle dorsiflexion/plantar flexion Imaging: US of LE and upper ext report reviewed Assessment/Plan: 43 y/o lady with h/o recurrent DVTx in LLE, HLP, DM, who presented due to bruises on L leg. SH ewas found ot have extensive DVT 1- Near occlusive DVT in L common femoral vein, and proximal L femoral vein. per her. DVT in 2011, stent placed in [place] in 2011, a procedure by Dr. Hernandez in 2016, then a DVT in 07/2018. She was seen by Dr. Jorgensen 3 weeks ago, was told to stop Lovenox and start Aspirin she follows with [facility] hematology, last visit 12/12 - cont Lovenox BID for now - test pending - Spoke to Dr. Vaz in [facility] [place]. the patient need thrombectomy and will be transferred to his service. - I instructed patient that she needs AC for life form now on . her out patient options will need to be discused with her after procedure - for now, she is hemodynamically stable. no suspicion for PE as no sx. intact neuro vascular exam of LLE 2- H/o DM: hold metformin. SSI 3- Dispo : transfer patient to [facility]. risks of worsening condition during transport, [place], arrythmias, car accident, and were d/w her. She agrees. friend in room. Visit type - Emergency Visit Emergency Visit: Yes ED Registration Date: 07/23/19 Care time: The patient presented to the Emergency Department on the above date and was hospitalized for further evaluation of their emergent condition. - New Patient This patient is new to me today: Yes Date on this admission: 07/24/19 - Critical Care Critical Care patient: No
[2019-07-24 13:18] VITALS: BP 120/67; PULSE 84; TEMP 98.2
--- NOTE | 2019-07-24 15:27 | EKG ---
Test Reason : Blood Pressure : / mmHG Vent. Rate : 076 BPM Atrial Rate : 076 BPM P-R Int : 168 ms QRS Dur : 098 ms QT Int : 388 ms P-R-T Axes : 033 -01 005 degrees QTc Int : 436 ms NORMAL SINUS RHYTHM INFERIOR INFARCT , AGE UNDETERMINED CANNOT RULE OUT ANTERIOR INFARCT , AGE UNDETERMINED ABNORMAL ECG WHEN COMPARED WITH ECG OF 02-AUG-2014 16:41, NO SIGNIFICANT CHANGE WAS FOUND Confirmed by MD DIDI, DALE ([id number]) on 07/24/2019 3:27:21 PM Referred By: Confirmed By:DALE TOLBERT MD
== END 2019-07-24 18:34 | disposition short-term general hospital (02) | DRG 301 ==
LOC: JER 17:28 → JERBED 20:07 → J5S 07-24 01:16
PROVIDERS: ADMIT Internal Medicine; ATTEND Internal Medicine
DX: I82.412 Acute embolism and thrombosis of left femoral vein (principal); E11.9 Type 2 diabetes mellitus without complications; E78.5 Hyperlipidemia, unspecified; E66.9 Obesity, unspecified; Z68.37 Body mass index [BMI] 37.0-37.9, adult
CPT/HCPCS: 36415; 71045-TC-FY; 80048; 80053; 82962; 83735; 84100; 84703; 85025; 85027; 85610; 85730; 93005; 93010; 93970-TC; 99285-25

== ENCOUNTER 2020-07-21 11:23 | Emergency (ER) | payer OTHER ==
[2020-07-21 11:49] VITALS: BP 127/78; PULSE 88; TEMP 98.3; BMI 40.4
[2020-07-21] MEDS ORDERED: ACETAMINOPHEN 500 MG TABLET (FP) PO ONE (12:56)
[2020-07-21] MEDS ORDERED: ACETAMINOPHEN 500 MG TABLET (FP) ONE (13:01)
== END 2020-07-21 13:06 | disposition home or self-care (01) ==
LOC: JER 11:23
DX: M77.32 Calcaneal spur, left foot (principal)
CPT/HCPCS: 73630-TC-LT; 99283-25

== ENCOUNTER 2020-09-08 09:22 | Emergency (ER) | payer OTHER ==
[2020-09-08 09:32] VITALS: BP 127/85; PULSE 89; TEMP 98; BMI 32.9
[2020-09-08] MEDS ORDERED: SODIUM CHLORIDE 0.9% 500 ML INFUS.BAG IV ONE (09:52)
[2020-09-08] MEDS ORDERED: METOCLOPRAMIDE HCL INJECTION 10 MG/2 ML VIAL IVPUSH ONE (09:54)
[2020-09-08] MEDS ORDERED: METOCLOPRAMIDE HCL INJECTION 10 MG/2 ML VIAL ONE (09:57)
[2020-09-08 11:20] LABS: EOS % 0.6 % (0-4.5); HEMOGLOBIN 13.4 GM/dL (10.7-15.3); LYMPH % 21.8 % (8-40); MCH 31.8 pg (25.7-33.7); MCHC 34.4 g/dl (32.0-36.0); MEAN CELL VOLUME 92.4 fl (80-96); MEAN PLT VOLUME 7.8 fl (7.5-11.1); NEUT % 69.6 % (42.8-82.8); PLATELET COUNT 370 K/MM3 (134-434); RBC 4.23 M/mm3 (3.60-5.2); RDW 13.8 % (11.6-15.6)
[2020-09-08] MEDS ORDERED: KETOROLAC TROMETHAMINE 30 MG/1 ML VIAL IVPUSH ONE (11:23)
[2020-09-08] MEDS ORDERED: KETOROLAC TROMETHAMINE 30 MG/1 ML VIAL ONE (11:31)
[2020-09-08 11:37] LABS: INR 1.07 (0.83-1.09); PROTHROMBIN TIME (PATIENT) 12.9 SEC (9.7-13.0)
[2020-09-08 11:40] LABS: ACTIVATED PTT 43.9 SECONDS (25.2-36.5)
[2020-09-08 11:46] LABS: POTASSIUM 4.7 mmol/L (3.5-5.1)
[2020-09-08 11:50] LABS: CALCIUM 9.1 mg/dL (8.5-10.1)
[2020-09-08 11:51] LABS: ALBUMIN 3.9 g/dl (3.4-5.0); BLOOD UREA NITROGEN 9.6 mg/dL (7-18)
[2020-09-08 11:55] LABS: BILIRUBIN,TOTAL 0.4 mg/dL (0.2-1); CREATININE 0.6 mg/dL (0.55-1.3)
[2020-09-08 11:56] LABS: TOT PROT 7.4 g/dl (6.4-8.2)
== END 2020-09-08 13:15 | disposition home or self-care (01) ==
LOC: JER 09:22
PROC: 3E0333Z Introduction of Anti-inflammatory into Peripheral Vein, Percutaneous Approach (ICD-10-PCS; principal; 2020-09-08)
PROC: 3E033GC Introduction of Other Therapeutic Substance into Peripheral Vein, Percutaneous Approach (ICD-10-PCS; 2020-09-08)
DX: R51.9 Headache, unspecified (principal)
CPT/HCPCS: 36415; 70450-TC; 80053; 85025; 85610; 85730; 99284-25

== ENCOUNTER 2021-08-09 11:44 | Emergency (ER) | payer OTHER ==
[2021-08-09 12:22] VITALS: BP 98/64; PULSE 88; TEMP 97.7; BMI 39.8
[2021-08-09] MEDS ORDERED: ACETAMINOPHEN 500 MG TABLET (FP) ONE (15:07)
[2021-08-09] MEDS ORDERED: ACETAMINOPHEN 500 MG TABLET (FP) PO ONE (15:07)
== END 2021-08-09 15:15 | disposition home or self-care (01) ==
LOC: JER 11:44
DX: M25.551 Pain in right hip (principal); M76.891 Other specified enthesopathies of right lower limb, excluding foot
CPT/HCPCS: 73523-TC-FY; 93971-TC; 99284-25

== ENCOUNTER 2022-11-07 06:18 | Day surgery (SDC) | payer OTHER ==
[2022-10-31 10:21] VITALS: BMI 35.2
[2022-11-07] MEDS ORDERED: BUPIVACAINE HCL/PF 0.25% (2.5MG/ML) 10 ML VIAL ONE (07:17)
[2022-11-07] MEDS ORDERED: BUPIVACAINE HCL/EPINEPHRINE/PF 30 ML VIAL IJ ONE (07:17)
[2022-11-07] MEDS ORDERED: BUPIVACAINE HCL/PF 0.5% (5MG/ML) 10 ML VIAL ONE (07:17)
[2022-11-07] MEDS ORDERED: SUCCINYLCHOLINE CHLORIDE 200 MG/10 ML SYRINGE ONE (07:39)
[2022-11-07] MEDS ORDERED: PROPOFOL 20 ML ONE (07:39)
[2022-11-07] MEDS ORDERED: MIDAZOLAM HCL 2 MG/2 ML SINGLE DOSE VIAL ONE (07:39)
[2022-11-07] MEDS ORDERED: ceFAZolin SODIUM 1 GM VIAL ONE (07:46)
[2022-11-07] MEDS ORDERED: ONDANSETRON 4 MG/2 ML VIAL ONE (07:47)
[2022-11-07] MEDS ORDERED: DEXAMETHASONE SOD PHOSPHATE 4 MG/1 ML VIAL ONE (07:47)
[2022-11-07 08:50] VITALS: RESP 16; TEMP 96.7
[2022-11-07 09:17] VITALS: BP 120/74; PULSE 80
[2022-11-07] MEDS ORDERED: oxyCODONE HCL 5 MG TABLET PO ONE (13:45)
== END 2022-11-07 09:17 | disposition home or self-care (01) ==
LOC: FASU 06:18
PROVIDERS: ATTEND Orthopaedic Surgery Sports Medicine
PROC: 0LN Tendons, Release (ICD-10-PCS; principal; 2022-11-07 07:58)
DX: M77.11 Lateral epicondylitis, right elbow (principal)
CPT/HCPCS: 81025; 82962

== ENCOUNTER 2023-01-06 09:37 | Emergency (ER) | payer OTHER ==
[2023-01-06 09:42] VITALS: BP 132/72; PULSE 87; RESP 18; TEMP 98.1; BMI 35.4
[2023-01-06 10:22] LABS: EPI CELLS 18 /uL (0-25.1); HYALINE CASTS 0 /uL (0-3.1); PH,URINE 5.5 (5.0-8.0); URINE APPEARANCE CLOUDY; URINE BACTERIA 670 /uL (0-1359); URINE BILIRUBIN NEGATIVE (NEGATIVE); URINE COLOR YELLOW; URINE GLUCOSE (UA) 3+ (NEGATIVE); URINE KETONE NEGATIVE (NEGATIVE); URINE LEUK ESTERASE 1+ (NEGATIVE); URINE NITRITE NEGATIVE (NEGATIVE); URINE PROTEIN TRACE (NEGATIVE); URINE RBC 176 /uL (0-23.9); URINE UROBILINOGEN 0.2 mg/dL (0.2-1.0); URINE WBC 1942 /uL (0-25.8)
== END 2023-01-06 12:08 | disposition home or self-care (01) ==
LOC: JER 09:37
DX: N30.01 Acute cystitis with hematuria (principal)
CPT/HCPCS: 81003; 87086; 87186; 99283-25